=== PATIENT | male | born 1985 ===

== ENCOUNTER 2017-03-31 21:15 | Emergency (ER) | payer OTHER ==
[2017-03-31] MEDS ORDERED: Acetaminophen TAB* 325 MG PO ONE (21:41)
--- NOTE | 2017-03-31 21:48 | UC ---
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 around noon developed nausea/vomiting x 5 some muscle cramps head ache pulse faster than normal felt faint when upright since being home has been tolerating fluids (drinking pedialyte) feels better than earlier no n/v x hours declines IV FLUIDS here - History Of Current Complaint Chief Complaint: UCGeneralIllness Stated Complaint: CAREY,DIZZINESS,VOMITTING Time Seen by Provider: 03/31/17 21:33 Hx Obtained From: Patient Onset/Duration: Gradual Onset, Lasting Days Timing: Constant Severity Initially: Moderate Severity Currently: Mild Pain Intensity: 6 Pain Scale Used: 0-10 Numeric Character: Lightheaded, Weak Aggravating Factor(s): Supine To Erect Alleviating Factor(s): Rest Associated Signs And Symptoms: Positive: Nausea, Vomiting, Palpitations, Visual Changes, Decreased Oral Intake - Allergies/Home Medications Allergies/Adverse Reactions: Allergies Allergy/AdvReac Type Severity Reaction Status Date / Time No Known Allergies Allergy Verified 03/31/17 21:21 Home Medications: Home Medications Naltrexone [Vivitrol] 1 inj MONTHLY 03/31/17 [History Confirmed 03/31/17] PMH/Surg Hx/FS Hx/Imm Hx Previously Healthy: Yes - opiate addiction/on vivatrol GI/ History: Other Other GI/ History: hep C - Surgical History Surgical History: None - Family History Known Family History: Positive: Hypertension - Social History Alcohol Use: None Substance Use Type: None Substance Use Comment - Amount & Last Used: 03/31/17-No substance use for last 6 weeks per pt. Smoking Status (MU): Current Every Day Smoker Amount Used/How Often: 1/2 ppd Review of Systems Constitutional: Fatigue Skin: Negative Eyes: Negative ENT: Negative Respiratory: Negative Cardiovascular: Negative Gastrointestinal: Vomiting, Nausea, Other - n/v resolved Genitourinary: Negative Motor: Weakness Neurovascular: Negative Musculoskeletal: Negative Neurological: Headache Psychological: Negative All Other Systems Reviewed And Are Negative: Yes Physical Exam Triage Information Reviewed: Yes Appearance: No Pain Distress, Well-Nourished, Ill-Appearing Vital Signs: Initial Vital Signs Temp 98.9 F 03/31/17 21:22 Pulse 110 03/31/17 21:22 Resp 16 03/31/17 21:22 BP 112/77 03/31/17 21:22 Pulse Ox 100 03/31/17 21:22 Eyes: Positive: Conjunctiva Clear ENT: Positive: Hearing grossly normal, TMs normal. Negative: Nasal congestion, Nasal drainage, Tonsillar exudate, Trismus, Muffled/hoarse voice Neck: Positive: Supple, Nontender, No Lymphadenopathy Respiratory: Positive: Lungs clear, Normal breath sounds, No respiratory distress, No accessory muscle use Cardiovascular: Positive: RRR, No Murmur, Tachycardia Abdomen Description: Positive: Nontender, No Organomegaly, Soft Musculoskeletal: Positive: ROM Intact, No Edema Neurological: Positive: Alert Psychological Exam: Normal Skin Exam: Normal Dizzy Course/Dx - Differential Dx/Diagnosis Provider Diagnoses: heat exhaustion. dehdration Discharge - Discharge Plan Condition: Stable Disposition: HOME Patient Education Materials: Dehydration (ED) Forms: *Work Release Referrals: Non Staff,Doctor [Primary Care Provider] - 1 Day Additional Instructions: I think you are dehydrated from HEAT EXHAUSTION rest fluid I suggest you not work outside tomorrow I suggest you see your MD tomorrow to get reevaluated to make sure you are ready to return to work
[2017-03-31 21:55] VITALS: BP 120/90
== END 2017-03-31 22:03 | disposition home or self-care (01) ==
LOC: UCCORT 21:15
DX: T67.5XXA Heat exhaustion, unspecified, initial encounter (principal); Y99.0 Civilian activity done for income or pay; X30.XXXA Exposure to excessive natural heat, initial encounter; Y93.89 Activity, other specified; Y92.410 Unspecified street and highway as the place of occurrence of the external cause; E86.0 Dehydration; Z72.0 Tobacco use
CPT/HCPCS: 99203; A9270-GY; G0463